=== PATIENT | male | born 1990 | race Caucasian/White ===

== ENCOUNTER 2022-09-27 14:11 | Emergency (ER) | payer SELFPAY ==
[2022-09-27] MEDS ORDERED: LORazepam 2 MG/ML SDV IVPUSH ONE ×2 (14:15→16:08)
[2022-09-27 14:45] LABS: ESTIMATED GFR 121 mL/min (>60)
[2022-09-27] MEDS: Sodium Chloride 0.9% 1,000 ML IV SCH ×2 (15:14→16:19)
[2022-09-27] MEDS ORDERED: Sodium Chloride 0.9% 1,000 ML IV SCH (15:30)
== END 2022-09-27 17:43 | disposition home or self-care (01) ==
LOC: JP.ED 14:11
DX: E86.0 Dehydration (principal); R56.9 Unspecified convulsions; F10.239 Alcohol dependence with withdrawal, unspecified
CPT/HCPCS: 36415; 80053; 80307; 85025; 96361; 96374; 96376; 99285; J2060; J7030

== ENCOUNTER 2025-01-23 21:55 | Emergency (ER) | payer MEDICAID, OTHER | END 2025-01-23 22:32 | LOC: JP.ED 21:55 | DX: F10.129 Alcohol abuse with intoxication, unspecified (principal) | CPT/HCPCS: 99283 ==